=== PATIENT | male | born 1950 | race Caucasian/White ===

== ENCOUNTER 2018-08-01 09:23 | Day surgery (SDC) | payer MEDICARE ==
[2018-07-30 13:47] VITALS: BP 156/86
[2018-07-30 13:57] LABS: BASOPHILS % (AUTO) 2.8 % (0.0-5.0); EOSINOPHILS % (AUTO) 4.9 % (0.0-8.0); HEMATOCRIT 44.6 % (42-54); LYMPHOCYTES % (AUTO) 22.9 % (21.0-51.0); MEAN CORPUSCULAR HEMOGLOBIN 31.1 pg (27.0-33.0); MEAN CORPUSCULAR HGB CONC 33.7 g/dL (32.0-36.0); MEAN CORPUSCULAR VOLUME 92.4 fL (79-99); MONOCYTES % (AUTO) 13.8 % (3.0-13.0); NEUTROPHILS % (AUTO) 55.6 % (40.0-77.0); PLATELET COUNT (AUTO) 183 K/uL (130-400); RED BLOOD CELL COUNT(AUTO) 4.82 MIL/uL (4.50-6.20); RED CELL DISTRIBUTION WIDTH 14.9 % (11.0-15.5); WHITE BLOOD COUNT (AUTO) 7.6 K/uL (4.8-10.8)
[2018-07-30 14:04] LABS: POTASSIUM 4.1 mmol/L (3.5-5.1)
[2018-07-30 14:21] LABS: INR 1.01 (0.85-1.15); PARTIAL THROMBOPLASTIN TIME 31.6 SEC (26.3-35.5); PROTHROMBIN TIME 10.6 SEC (9.6-11.6)
[2018-08-01] VITALS (10 sets, daily range): BP systolic 118–143; BP diastolic 63–84
[~2018-08-01] VITALS: Ht 172.7 cm; Wt 93.0 kg
[~2018-08-01 09:23] MED LIST: APIX5TAB PO; CLON1TAB12 PO; LOSA1TAB37 PO; PROP150T28 PO; ROSU10TA27 PO; ROSU5TAB11 PO; SITA100T12 PO
[2018-08-01] MEDS ORDERED: UBID100C45 PO (10:27)
[2018-08-01] MEDS ORDERED: SODIUM CHLORIDE 0.9% 1000ML 1,000 ML IV ONE (10:29)
[2018-08-01] MEDS ORDERED: PROPOFOL 10 MG/ML 20ML VIAL IV ONE (11:20)
== END 2018-08-01 12:40 | disposition home or self-care (01) ==
LOC: DAH 09:23
PROVIDERS: ATTEND Internal Medicine Cardiovascular Disease
DX: I48.1 Persistent atrial fibrillation (principal); Z68.30 Body mass index [BMI] 30.0-30.9, adult; I10 Essential (primary) hypertension; E11.9 Type 2 diabetes mellitus without complications; E78.5 Hyperlipidemia, unspecified; Z79.01 Long term (current) use of anticoagulants; I48.92 Unspecified atrial flutter; Z79.899 Other long term (current) drug therapy; Z79.84 Long term (current) use of oral hypoglycemic drugs; E66.9 Obesity, unspecified; I44.7 Left bundle-branch block, unspecified
CPT/HCPCS: 36415; 80048; 82948; 85025; 85610; 85730; 92960; 93005 ×2; A4606; J2704; J7030; 99156; 99157

== ENCOUNTER 2020-06-13 19:34 | Emergency (ER) | payer MEDICARE ==
[~2020-06-13 19:34] MED LIST changes: -ROSU10TA27 PO; +ROSU10TA28 PO; -ROSU5TAB11 PO; +ROSU5TAB12 PO; +UBID100C45 PO
[2020-06-13] MEDS ORDERED: BUPIVACAINE/PF 0.5% 30ML VIAL ONE (20:04)
[2020-06-13] MEDS ORDERED: CEFTRIAXONE SODIUM 1 GM ONE (21:12)
[2020-06-13] MEDS ORDERED: TETANUS/DIPHTHERIA TOXOID [ADULT] 0.5 ML VIAL IM ONE (21:12)
[2020-06-13] MEDS ORDERED: LIDOCAINE HCL 1% 20 ML VIAL ONE (21:14)
== END 2020-06-13 22:42 | disposition home or self-care (01) ==
LOC: EDH 19:34
DX: S62.632A Displaced fracture of distal phalanx of right middle finger, initial encounter for closed fracture (principal); E11.9 Type 2 diabetes mellitus without complications; I10 Essential (primary) hypertension; E78.5 Hyperlipidemia, unspecified; Z87.891 Personal history of nicotine dependence; W22.8XXA Striking against or struck by other objects, initial encounter; Y93.02 Activity, running; Y92.098 Other place in other non-institutional residence as the place of occurrence of the external cause; Y99.8 Other external cause status
CPT/HCPCS: 29130; 73140; 90471; 90714; 96372; 99284; J0696; J3490

== ENCOUNTER 2020-06-15 09:07 | Observation (INO) | payer MEDICARE ==
[~2020-06-15] VITALS: Ht 170.2 cm; Wt 90.4 kg
[2020-06-15] MEDS ORDERED: FENTANYL CITRATE PF 50 MCG/1 ML 2ML VIAL ONE (10:42)
[2020-06-15 11:03] LABS: CREATININE 1.1 mg/dL (0.5-1.5); POTASSIUM 3.5 mmol/L (3.5-5.1)
[2020-06-15 11:08] LABS: ALBUMIN 3.8 g/dL (3.5-5.0); BILIRUBIN,TOTAL 0.8 mg/dL (0.2-1.0); TOTAL PROTEIN, SERUM 7.6 g/dL (6.0-8.3)
[2020-06-15 11:19] LABS: EOSINOPHILS % (AUTO) 4.2 % (0.0-8.0); HEMATOCRIT 44.7 % (42-54); LYMPHOCYTES % (AUTO) 18.3 % (21.0-51.0); MEAN CORPUSCULAR HEMOGLOBIN 32.1 pg (27.0-33.0); MEAN CORPUSCULAR HGB CONC 34.5 g/dL (32.0-36.0); MEAN CORPUSCULAR VOLUME 93.1 fL (79-99); MONOCYTES % (AUTO) 12.9 % (3.0-13.0); NEUTROPHILS % (AUTO) 63.2 % (40.0-77.0); PLATELET COUNT (AUTO) 170 K/uL (130-400); RED CELL DISTRIBUTION WIDTH 12.9 % (11.0-15.5); WHITE BLOOD COUNT (AUTO) 7.2 K/uL (4.8-10.8)
[2020-06-15 12:26] LABS: INR 0.99 (0.85-1.15); PROTHROMBIN TIME 10.7 SEC (9.6-11.6)
[2020-06-15 12:55] LABS: PARTIAL THROMBOPLASTIN TIME 27.2 SEC (26.3-35.5)
[2020-06-15] MEDS ORDERED: CEFAZOLIN SODIUM 1 GM VIAL ONE ×2 (15:31→21:39)
[2020-06-15] MEDS ORDERED: ACETAMINOPHEN-CODEINE 300/30MG TAB ONE ×2 (15:31→21:28)
[2020-06-15] MEDS ORDERED: SODIUM CHLORIDE 0.9% 50 ML IV ONE (15:32)
[2020-06-15] MEDS ORDERED: MORPHINE SULFATE 2 MG/ML 1ML SYG ONE (21:23)
[2020-06-15] MEDS ORDERED: SODIUM CHLORIDE 0.9% 100 ML IV ONE (21:41)
[2020-06-16] VITALS (18 sets, daily range): BP systolic 130–163; BP diastolic 43–84
[2020-06-16] MEDS ORDERED: MORPHINE SULFATE 2 MG/ML 1ML SYG ONE (00:51)
[2020-06-16] MEDS ORDERED: GLUC100019 PO (01:29)
[2020-06-16] MEDS ORDERED: MORPHINE SULFATE 2 MG/ML 1ML SYG IVP PRN (05:15)
[2020-06-16] MEDS ORDERED: ACETAMINOPHEN-CODEINE 300/30MG TAB PO PRN (05:15)
[2020-06-16] MEDS ORDERED: CEFAZOLIN SODIUM 1 GM VIAL IVP SCH (05:30)
--- NOTE | 2020-06-16 08:30 | NUR ---
SURGERY discussed plan of care with pt voices understanding c/o throbbing right middle finger elevated right upper extremity x1 pillow applied ice pack x3 reinforced NPO status
[2020-06-16] MEDS ORDERED: LINAGLIPTIN 5 MG TABLET PO SCH (09:00)
[2020-06-16] MEDS ORDERED: HYDROCHLOROTHIAZIDE 25 MG TABLET PO SCH (09:00)
[2020-06-16] MEDS ORDERED: LOSARTAN 50 MG TABLET PO SCH (09:00)
[2020-06-16] MEDS ORDERED: CO Q PO SCH (09:00)
[2020-06-16] MEDS ORDERED: MULTIVITAMIN TABLET PO SCH (09:00)
[2020-06-16] MEDS ORDERED: PROPAFENONE HCL 150 MG TABLET PO SCH (09:00)
[2020-06-16] MEDS ORDERED: SODIUM CHLORIDE 0.9% 1000ML 1,000 ML IV ONE (11:07)
[2020-06-16] MEDS ORDERED: LIDOCAINE PF 2% 5ML ABBOJECT ONE (11:21)
[2020-06-16] MEDS ORDERED: FENTANYL CITRATE PF 50 MCG/1 ML 2ML VIAL ONE (11:22)
[2020-06-16] MEDS ORDERED: PROPOFOL 10 MG/ML 20ML VIAL IV ONE (11:22)
[2020-06-16] MEDS ORDERED: MIDAZOLAM HCL 1 MG/ML 2ML VIAL ONE (11:22)
[2020-06-16] MEDS ORDERED: LIDOCAINE HCL 1% 20 ML VIAL ONE (11:28)
[2020-06-16] MEDS ORDERED: CEFAZOLIN SODIUM 1 GM VIAL ONE (11:29)
[2020-06-16] MEDS ORDERED: CEPH500B PO (15:40)
--- NOTE | 2020-06-16 16:30 | NUR ---
DISCHARGE discussed discharge instructions with pt voices understanding
[2020-06-16] MEDS ORDERED: CLONAZEPAM 1 MG TABLET PO SCH (21:00)
[2020-06-16] MEDS ORDERED: CRESTOR PO SCH (21:00)
== END 2020-06-16 17:15 | disposition home or self-care (01) ==
LOC: EDH 09:07 → EDHIP 12:40 → 3BH 22:32
PROVIDERS: ADMIT Surgery Plastic and Reconstructive Surgery; ATTEND Surgery Plastic and Reconstructive Surgery
DX: S61.312A Laceration without foreign body of right middle finger with damage to nail, initial encounter (principal); Z20.828 Contact with and (suspected) exposure to other viral communicable diseases; E11.9 Type 2 diabetes mellitus without complications; I10 Essential (primary) hypertension; E78.5 Hyperlipidemia, unspecified; G47.52 REM sleep behavior disorder; Z87.891 Personal history of nicotine dependence; Z79.899 Other long term (current) drug therapy; X58.XXXA Exposure to other specified factors, initial encounter; Y93.89 Activity, other specified; Y92.89 Other specified places as the place of occurrence of the external cause
CPT/HCPCS: 12002; 36415; 80053; 82948 ×2; 85025; 85610; 85730; 87426; 96374; 96375; 99284; A4222; A4223; A4930; A6446; G0168; G0378 ×13; J0690 ×4; J2001; J2250; J2704; J3010 ×2; J7030 ×2